=== PATIENT | female | born 1960 | race Caucasian/White ===

== ENCOUNTER 2021-01-05 | Emergency (ER) | payer BC | END 2021-01-05 11:47 | disposition home or self-care (01) | CPT/HCPCS: 36415; 74176; 80053; 81001; 85025; 96374; 99284 ==

== ENCOUNTER 2021-09-20 11:31 | Emergency (ER) | payer BC ==
[2021-09-20 11:38] VITALS: BP 100/36; PULSE 105; RESP 16; TEMP 97.8
[2021-09-20] MEDS ORDERED: SODIUM CHLORIDE 0.9% 1,000 ML IV STA (11:56)
[2021-09-20] MEDS ORDERED: KETOROLAC 15 MG/ML 1 ML VIAL IVP STA (12:04)
[2021-09-20] MEDS ORDERED: ONDANSETRON 4 MG/2 ML VIAL IVP STA (12:05)
[2021-09-20 12:47] LABS: Basophils % (A) 0 %; Eosinophils # (A) 0.1 k/uL (0-0.7); Eosinophils % (A) 2 %; HCT 46.1 % (34.0-46.0); HGB 15.7 gm/dL (11.4-16.0); Lymphocytes # (A) 0.2 k/uL (1.0-4.8); Lymphocytes % (A) 3 %; MCH 33.8 pg (25.0-35.0); MCHC 33.9 g/dL (31.0-37.0); MCV 99.6 fL (80.0-100.0); Mean Platelet Volume 7.8; Monocytes # (A) 0.2 k/uL (0-1.0); Monocytes % (A) 3 %; Neutrophils # (A) 7.4 k/uL (1.3-7.7); Neutrophils % (A) 93 %; Platelet Count 243 k/uL (150-450); RBC 4.63 m/uL (3.80-5.40); RDW 12.8 % (11.5-15.5)
[2021-09-20 12:58] LABS: Albumin 4.4 g/dL (3.5-5.0); Calcium 9.8 mg/dL (8.4-10.2); Potassium 4.4 mmol/L (3.5-5.1); Total Bilirubin 1.1 mg/dL (0.2-1.3); Total Protein 7.5 g/dL (6.3-8.2)
--- NOTE | 2021-09-20 14:18 | ED ---
General Adult HPI - General Chief complaint: Nausea/Vomiting/Diarrhea Stated complaint: Nausea, vomiting Time Seen by Provider: 09/20/21 11:56 Source: patient, EMS, RN notes reviewed Mode of arrival: EMS Limitations: no limitations - History of Present Illness Initial comments: 61-year-old female presents emergency Department via EMS chief complaint nausea vomiting diarrhea. Symptoms started around 6:30 this morning. She states has been persistent. She states that she feels achy all over her abdomen, back. Denies any chest pain or shortness of breath. Patient denies any fevers or chills. Patient states is diffuse watery diarrhea denies any melena hematochezia and no hematemesis copremesis. Patient has no localized pain. Denies fever or chills. Patient offers no other complaints. - Related Data Home Medications Medication Instructions Recorded Confirmed Levothyroxine Sodium [Synthroid] 75 mcg PO DAILY 07/24/14 07/24/14 Previous Rx's Medication Instructions Recorded Cyclobenzaprine [Flexeril] 10 mg PO TID #14 tab 07/24/14 Ibuprofen [Motrin] 800 mg PO Q6HR PRN #20 tab 07/24/14 Ibuprofen [Motrin] 800 mg PO Q6HR #30 tab 01/05/21 Nitrofurantoin Monohyd/M-Cryst 100 mg PO Q12HR #10 cap 01/05/21 [Macrobid] Ondansetron Odt [Zofran Odt] 4 mg PO Q8HR PRN #10 tab 09/20/21 Allergies Allergy/AdvReac Type Severity Reaction Status Date / Time latex Allergy Dyspnea Verified 01/05/21 09:59 Review of Systems ROS Statement: Those systems with pertinent positive or pertinent negative responses have been documented in the HPI. ROS Other: All systems not noted in ROS Statement are negative. Past Medical History Past Medical History: Thyroid Disorder History of Any Multi-Drug Resistant Organisms: None Reported Past Surgical History: Tubal Ligation Past Psychological History: No Psychological Hx Reported Smoking Status: Current every day smoker Past Alcohol Use History: None Reported Past Drug Use History: None Reported General Exam Limitations: no limitations General appearance: alert, in no apparent distress Head exam: Present: atraumatic, normocephalic, normal inspection Eye exam: Present: normal appearance, PERRL, EOMI. Absent: scleral icterus, conjunctival injection, periorbital swelling ENT exam: Present: normal exam, mucous membranes moist Neck exam: Present: normal inspection. Absent: tenderness, meningismus, lymphadenopathy Respiratory exam: Present: normal lung sounds bilaterally. Absent: respiratory distress, wheezes, rales, rhonchi, stridor Cardiovascular Exam: Present: regular rate, normal rhythm, normal heart sounds. Absent: systolic murmur, diastolic murmur, rubs, gallop, clicks GI/Abdominal exam: Present: soft, tenderness (mild diffuse), normal bowel sounds. Absent: distended, guarding, rebound, rigid Back exam: Present: normal inspection, full ROM. Absent: CVA tenderness (R), CVA tenderness (L) Neurological exam: Present: alert, oriented X3, CN II-XII intact, reflexes normal. Absent: motor sensory deficit Course Vital Signs 09/20/21 11:33 Temperature 97.8 F Pulse Rate 105 H Respiratory 16 Rate Blood Pressure 100/36 O2 Sat by Pulse 98 Oximetry Medical Decision Making - Medical Decision Making Labs were reviewed no significant findings. Patient has gastroenteritis. Patient was hydrated, given antiemetics. Patient discharged with antiemetics, return parameters were discussed. - Lab Data Result diagrams: 09/20/21 12:39 09/20/21 12:39 Lab Results 09/20/21 09/20/21 09/20/21 Range/Units 12:39 12:39 12:39 WBC 8.0 (3.8-10.6) k/uL RBC 4.63 (3.80-5.40) m/uL Hgb 15.7 (11.4-16.0) gm/dL Hct 46.1 H (34.0-46.0) % MCV 99.6 (80.0-100.0) fL MCH 33.8 (25.0-35.0) pg MCHC 33.9 (31.0-37.0) g/dL RDW 12.8 (11.5-15.5) % Plt Count 243 (150-450) k/uL MPV 7.8 Neutrophils % 93 % Lymphocytes % 3 % Monocytes % 3 % Eosinophils % 2 % Basophils % 0 % Neutrophils # 7.4 (1.3-7.7) k/uL Lymphocytes # 0.2 L (1.0-4.8) k/uL Monocytes # 0.2 (0-1.0) k/uL Eosinophils # 0.1 (0-0.7) k/uL Basophils # 0.0 (0-0.2) k/uL Sodium 137 (137-145) mmol/L Potassium 4.4 (3.5-5.1) mmol/L Chloride 107 (98-107) mmol/L Carbon Dioxide 24 (22-30) mmol/L Anion Gap 6 mmol/L BUN 19 H (7-17) mg/dL Creatinine 1.07 H (0.52-1.04) mg/dL Est GFR (CKD-EPI)AfAm 65 (>60 ml/min/1.73 sqM) Est GFR (CKD-EPI)NonAf 57 (>60 ml/min/1.73 sqM) Glucose 125 H (74-99) mg/dL Calcium 9.8 (8.4-10.2) mg/dL Total Bilirubin 1.1 (0.2-1.3) mg/dL AST 23 (14-36) U/L ALT 14 (4-34) U/L Alkaline Phosphatase 74 (38-126) U/L Troponin I <0.012 (0.000-0.034) ng/mL Total Protein 7.5 (6.3-8.2) g/dL Albumin 4.4 (3.5-5.0) g/dL Amylase 74 (30-110) U/L Lipase 111 (23-300) U/L Disposition Clinical Impression: Gastroenteritis Disposition: HOME SELF-CARE Condition: Stable Instructions (If sedation given, give patient instructions): Gastroenteritis (ED) Additional Instructions: Please return to the Emergency Department if symptoms worsen or any other concerns. Prescriptions: Ondansetron Odt [Zofran Odt] 4 mg PO Q8HR PRN #10 tab PRN Reason: Nausea Is patient prescribed a controlled substance at d/c from ED?: No Referrals: Steven Valadez DO [Primary Care Provider] - 1-2 days Time of Disposition: 14:17
== END 2021-09-20 14:40 | disposition home or self-care (01) ==
LOC: EC 11:31
DX: K52.9 Noninfective gastroenteritis and colitis, unspecified (principal); E07.9 Disorder of thyroid, unspecified; F17.200 Nicotine dependence, unspecified, uncomplicated; Z91.040 Latex allergy status; Z98.51 Tubal ligation status
CPT/HCPCS: 99284; 96374; 96375; 96361; 36415; 93005; 80053; 82150; 83690; 84484; 85025; J2405; J1885

== ENCOUNTER 2025-01-18 00:02 | Emergency (ER) | payer BC, OTHER ==
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
[2025-01-18] MEDS: metroNIDAZOLE 500 MG TAB PO STA (06:55)
[2025-01-18] MEDS: cefTRIAXone 500 MG VIAL IM ONE (06:55)
[2025-01-18] MEDS: DOXYCYCLINE 100 MG TABLET PO STA (06:56)
[2025-01-18 07:01] VITALS: BP 116/70; PULSE 68; RESP 18; TEMP 98
[2025-01-18 07:52] LABS: Barbiturate Screen,Urine Not Detected (NotDetected); Benzodiazepines Screen,Urine Not Detected (NotDetected); Opiate Screen,Urine Not Detected (NotDetected); Oxycodone Screen, Urine Not Detected (NotDetected); Phencyclidine Screen,Urine Not Detected (NotDetected); Tricyclic Antidepressant,Urine Not Detected (NotDetected); Urn Cannabinoid Scrn Not Detected (NotDetected)
== END 2025-01-18 07:02 | disposition home or self-care (01) ==
LOC: EC 00:02 → SUPCPDRO 00:02 → EC 07:02
DX: T76.21XA Adult sexual abuse, suspected, initial encounter (principal); F17.200 Nicotine dependence, unspecified, uncomplicated; Z91.040 Latex allergy status
CPT/HCPCS: 80306; 99285; 96372; J0696